=== PATIENT | male | born 1935 | race Caucasian/White ===

== ENCOUNTER 2016-10-17 19:11 | Emergency (ER) | payer MEDICARE ==
[2016-10-17 20:26] VITALS: BP 164/92
--- NOTE | 2016-10-17 20:49 | UC ---
UC General HPI - HPI Summary HPI Summary: complaint of rash that started on the back of his hands 2 weeks ago rash would blister and ooze - went to see PCP prescribed mupirocin without any relief precribed bactrim today for the rash but didn't start medication because he is on warfarin rash is itchy and spred up his arms denies fever and chills - History of Current Complaint Chief Complaint: UCRash Stated Complaint: RASH Time Seen by Provider: 10/17/16 20:42 - Allergy/Home Medications Allergies/Adverse Reactions: Allergies Allergy/AdvReac Type Severity Reaction Status Date / Time Doxycycline Allergy Hives Verified 10/17/16 20:26 Home Medications: Home Medications Lisinopril TAB* [Prinivil TAB*] 2 tab PO DAILY 10/17/16 [History Confirmed 10/17] PMH/Surg Hx/FS Hx/Imm Hx Endocrine History Of: Denies: Diabetes Cardiovascular History Of: Reports: Hypertension Denies: Congestive Heart Failure Respiratory History Of: Reports: Pulmonary Embolism - BILAT 2007, ON [facility]/ History Of: Reports: Kidney Stones - LEFT Denies: Renal Disease - Surgical History Surgical History: Yes Surgery Procedure, Year, and Place: TONSILLECTOMY,LT URETEROSCOPY - Social History Alcohol Use: Rare Substance Use Type: None Smoking Status (MU): Never Smoked Tobacco Review of Systems Constitutional: Negative Skin: Rash Eyes: Negative ENT: Negative Respiratory: Negative Cardiovascular: Negative Gastrointestinal: Negative Genitourinary: Negative Motor: Negative Neurovascular: Negative Musculoskeletal: Negative Neurological: Negative Psychological: Negative All Other Systems Reviewed And Are Negative: Yes Physical Exam Triage Information Reviewed: Yes Appearance: No Pain Distress, Well-Nourished, Thin Vital Signs: Initial Vital Signs Temp 97.9 F 10/17/16 20:22 Pulse 67 10/17/16 20:22 Resp 18 10/17/16 20:22 BP 164/92 10/17/16 20:22 Pulse Ox 100 10/17/16 20:22 Vital Signs Reviewed: Yes Eyes: Positive: Conjunctiva Clear ENT: Positive: Pharynx normal, TMs normal Neck: Positive: Supple Respiratory: Positive: Lungs clear, Normal breath sounds, No respiratory distress Cardiovascular: Positive: RRR, No Murmur, Pulses Normal Abdomen Description: Positive: Nontender, Soft Bowel Sounds: Positive: Present Musculoskeletal: Positive: No Edema Neurological: Positive: Alert Psychological: Positive: Normal Response To Family Skin: Positive: rashes - BUE- back of hands and foreams with pustular erythematous rash in hair follicles Course/Dx - Course Course Of Treatment: exam completed. discussed with patient that it is safe to follow PCP plan as they will monitor his INR - Differential Dx - Multi-Symptom Provider Diagnoses: rash- folliculitis Discharge - Discharge Plan Condition: Stable Disposition: HOME Patient Education Materials: Folliculitis (ED) Referrals: Blaine Donovan MD [Primary Care Provider] - Additional Instructions: start the bactrim as precribed by your primary care physician make an appt with your primary care provider to be re-evaluated next week
== END 2016-10-17 21:00 | disposition home or self-care (01) ==
LOC: UCEAST 19:11
DX: L73.9 Follicular disorder, unspecified (principal); I10 Essential (primary) hypertension; Z86.711 Personal history of pulmonary embolism; Z79.01 Long term (current) use of anticoagulants; Z88.1 Allergy status to other antibiotic agents
CPT/HCPCS: 99211; G0463

== ENCOUNTER 2019-01-12 05:34 | Day surgery (SDC) | payer MEDICARE ==
--- NOTE | 2019-01-04 22:25 | HP ---
CC: Dr. Ruth Donovan * HISTORY AND PHYSICAL: DATE OF PLANNED ADMISSION AND SURGERY: 01/12/19 HISTORY OF PRESENT ILLNESS: Mr. Remy is an 83-year-old white male who is admitted with a large symptomatic left hydrocele for surgical repair. I have been following Mr. Remy for many years because of element of prostate enlargement, history of renal calculus disease, and an enlarging left hydrocele. He had required ureteroscopy bilaterally for stone disease in the past, and his recent renal ultrasound showed a nonobstructing right renal calculus. The patient has been having an enlarging left hydrocele, which more recently became very large growing into the inguinal area and displacing the right testis. It has become symptomatic interfering with his physical activities. Because of the above history and the symptomatic nature and the size of the left hydrocele, surgical repair was advised and accepted. PAST MEDICAL HISTORY AND SYSTEM REVIEW: The patient had history of pulmonary embolism back in 2003. He had been maintained on warfarin since that time He has mild hypertension, maintained on lisinopril 10 mg daily. He has GERD, on omeprazole as needed. He is otherwise in good health, has good exercise tolerance and denies any shortness of breath or denies any cardiac symptoms. He is a nonsmoker. No drug use. FAMILY HISTORY: Negative. PHYSICAL EXAMINATION GENERAL: He is pleasant and healthy-looking white male, who looks good for his age. VITAL SIGNS: Blood pressure 140/90, pulse of 70. LUNGS: Clear. HEART: Regular and rhythmic. No murmurs. ABDOMEN: Soft. No masses, no tenderness, and no CVA tenderness. EXTERNAL GENITALIA: He has a very large left hydrocele measuring in excess of 15 cm. The hydrocele is tense with and it is extending into the inguinal area and pushing the right testicle to the periphery. No inguinal hernias noted. RECTAL: Exam showed a moderately enlarged, but nonsuspicious prostate. EXTREMITIES: Show no edema. IMPRESSION: 1. Very large symptomatic left hydrocele. 2. History of renal calculus disease. 3. Distant history of pulmonary embolism, on anticoagulation. PLAN: Left hydrocelectomy. I discussed the above plans with Dr. Ruth Donovan, his billing manager, and she felt that it is safe to discontinue the Coumadin one week preoperatively without the need to bridge him with Lovenox. I discussed the operation in detail with the patient. Some of the potential complications including hematoma and infection were discussed. I also described to the patient the fact that it is very likely that he will have a significant degree of postoperative scrotal swelling that would be present for 6 to 8 weeks following the surgery that will ultimately improve and resolve spontaneously. All his questions were answered. [id number]/[facility] #: [id number] MARKEL
[~2019-01-12 05:34] MED LIST: Buffered Lidocaine 1% SYRIN* 1 ML/SYRINGE INTRADERM ONE
[2019-01-12] MEDS ORDERED: Famotidine IV* 10 MG/ML 2 ML (20 mg) ONE (05:59)
[2019-01-12] MEDS ORDERED: Dexamethasone IV* 4 MG/ML 1 ML (4 MG) ONE (05:59)
[2019-01-12] MEDS ORDERED: Levofloxacin 750 MG IVPREMIX(* 750 MG/150 ML BAG ONE (05:59)
[2019-01-12] MEDS ORDERED: Lactated Ringers 1000 ML Bag* 1,000 ML IV SCH (06:00)
[2019-01-12] MEDS ORDERED: Famotidine IV* 10 MG/ML 2 ML (20 mg) IV ONE (06:00)
[2019-01-12] MEDS ORDERED: Dexamethasone IV* 4 MG/ML 1 ML (4 MG) IV SLOW PU ONE (06:00)
[2019-01-12 06:39] LABS: INR 1.06 (0.82-1.09)
[2019-01-12] MEDS ORDERED: Bupivacaine 0.5%* 50 ML VIAL ONE (06:52)
[2019-01-12] MEDS ORDERED: fentaNYL* 50 MCG/ML 2 ML VIAL (100 MCG VIAL) ONE ×2 (07:06→07:58)
[2019-01-12] MEDS ORDERED: Midazolam* 1 MG/ML 2 ML VIAL (2 MG) ONE (07:06)
[2019-01-12] MEDS ORDERED: fentaNYL* 50 MCG/ML 2 ML VIAL (100 MCG VIAL) IV PRN (07:21)
[2019-01-12] MEDS ORDERED: Naloxone* 0.4 MG/ML 1 ML VIAL IV PRN (07:21)
[2019-01-12] MEDS ORDERED: DiMENhydriNATE IV* 50 MG/ML VIAL IV PUSH PRN (07:21)
[2019-01-12] MEDS ORDERED: HYDROcodone/ACETAMIN 5-325 MG* 1 TAB PO PRN (07:21)
[2019-01-12] MEDS ORDERED: Ibuprofen TAB* 600 MG PO PRN (07:21)
[2019-01-12] MEDS ORDERED: Acetaminophen TAB* 325 MG PO PRN (07:21)
[2019-01-12] MEDS ORDERED: oxyCODONE TAB* 5 MG TAB PO PRN (07:21)
[2019-01-12] MEDS ORDERED: Lidocaine 2% PF * 5 ML VIAL ONE (07:36)
[2019-01-12] MEDS ORDERED: Propofol* 10 MG/ML 20 ML BTL ONE (07:36)
[2019-01-12] MEDS ORDERED: Ondansetron INJ* 2 MG/ML VIAL ONE (08:27)
[2019-01-12] MEDS ORDERED: EPHEDrine (Pressors)* 50 MG/ML VIAL ONE (08:46)
[2019-01-12 10:02] VITALS: BP 114/82
[2019-01-12] MEDS ORDERED: Ibuprofen TAB* 600 MG ONE (10:17)
--- NOTE | 2019-01-12 10:56 | OP ---
CC: Dr. Ruth Donoavn OPERATIVE REPORT: DATE OF OPERATION: 01/12/19 DATE OF : 37 SURGEON: Bam Mann MD ANESTHESIOLOGIST: Dr. Adams Pierre. ANESTHESIA: General. PRE-OP DIAGNOSIS: Large left hydrocele. POST-OP DIAGNOSIS: Large left hydrocele. OPERATIVE PROCEDURE: Left hydrocelectomy (scrotal approach). INDICATIONS: Mr. Jackson is an 83-year-old white male who had a long history of left scrotal enlargement. More recently the enlargement has gotten more significant and bothersome interfering with the physical activities. Scrotal ultrasound confirmed a simple left hydrocele. No inguinal hernia noted. Physical examination showed a 15 cm transilluminating left hydrocele. Because of the above history and findings and the symptomatic nature of the condition, surgical correction was advised and accepted. PATHOLOGY: Upon left scrotal exploration, there was a large simple left hydrocele. The hydrocele fluid was straw colored and measured 800 cc. There were no abnormal lesions or pathology noted on the inside of the scrotal sac. The testis looked normal without any masses. No inguinal hernia noted. DESCRIPTION OF PROCEDURE: After successful general anesthesia, the patient was placed in the supine position and was prepped and draped for a scrotal incision. A transverse incision was carried in the anterior aspect of the left hemiscrotum and was deepened through the dartos muscle. The hydrocele sac was then identified and was dissected from the overlying dartos muscle and was delivered through the incision. The hydrocele sac was then opened and the fluid was drained and measured at 800 cc. The hydrocele sac was then fully opened. The testis was inspected. The spermatic cord was identified. Portions of the hydrocele sac were then trimmed using coagulation current, and sent for pathology. The edges of the trimmed hydrocele sac were then everted and approximated together using a running locking suture of 4-0 Vicryl achieving good hemostasis. Additional hemostasis was then carried in the scrotal wall. The testis was then placed in the scrotal cavity. The cavity was irrigated with saline. Two Yovani drains were left in the scrotal cavity one placed anterior to the testis , the other one posterior,and both drains were brought out through a stab wound incision in the dependent part of the hemiscrotum. The drains were transfixed to the skin with 2- 0 Prolene sutures. After making sure there was good hemostasis, the scrotal incision was closed using a running locking suture of 3-0 Vicryl for the dartos muscle. The skin was then closed using interrupted everting sutures of 4-0 Vicryl. A total of 10 cc of 0.5% Marcaine without epinephrine were used to infiltrate the incision for postoperative analgesia. A dressing was applied. The patient tolerated the procedure well and left the operating room in good condition. The blood loss was negligible. The specimen was portions of hydrocele sac. All the counts were correct. [id number]/[facility] #: [id number] [facility]
== END 2019-01-12 10:47 | disposition home or self-care (01) ==
LOC: OR 05:34
PROVIDERS: ATTEND Urology
DX: N43.3 Hydrocele, unspecified (principal); I10 Essential (primary) hypertension; Z79.01 Long term (current) use of anticoagulants; Z86.711 Personal history of pulmonary embolism; M35.3 Polymyalgia rheumatica
CPT/HCPCS: 36415; 85610; 88302; A9270-GY; J1100; J2250; J2405; J2704; J3010; J3490